=== PATIENT | female | born 1970 | race Caucasian/White ===

== ENCOUNTER 2016-12-05 13:22 | Emergency (ER) | payer OTHER ==
[~2016-12-05] VITALS: Ht 154.9 cm; Wt 81.6 kg
[2016-12-05 13:33] VITALS: BP 129/62
--- NOTE | 2016-12-05 13:52 | NUR ---
46 YO FEMALE C/O ABDOMINAL AND BACK OF NECK PAIN 8/ WITH NAUSEA SINCE 0600 TODAY, DENIES VOMITING, DIARRHEA, LBM WAS NORMAL TODAY. A&OX4, GURNEY TO LOWEST LEVEL, BED RAIL UP, FAMILY AT BEDSIDE, WAITING FOR ERMD EVAL.
[2016-12-05] MEDS ORDERED: KETOROLAC 30 MG/ML VIAL IM ONE (14:35)
[2016-12-05 14:47] LABS: BASOPHILS # (AUTO) 0.1 K/uL (0.00-0.22); BASOPHILS % (AUTO) 1.5 % (0.0-2.0); EOSINOPHILS # (AUTO) 0.1 K/uL (0-0.4); EOSINOPHILS % (AUTO) 0.9 % (0.0-4.0); HEMATOCRIT 37.3 % (36-48); HEMOGLOBIN 11.3 g/dL (12.0-16.0); LYMPHOCYTES # (AUTO) 0.5 K/uL (2.5-16.5); LYMPHOCYTES % (AUTO) 5.2 % (20.5-51.1); MEAN CORPUSCULAR HEMOGLOBIN 22 pg (27-31); MEAN CORPUSCULAR HGB CONC 30 g/dL (33-37); MEAN CORPUSCULAR VOLUME 73 fL (80-94); MONOCYTES # (AUTO) 0.6 K/uL (0.8-1.0); MONOCYTES % (AUTO) 5.6 % (1.7-9.3); NEUTROPHILS # (AUTO) 8.6 K/uL (1.8-7.7); NEUTROPHILS % (AUTO) 86.8 % (42.2-75.2); PLATELET COUNT (AUTO) 292 K/uL (140-450); RED BLOOD CELL COUNT(AUTO) 5.13 MIL/uL (4.20-5.40); RED CELL DISTRIBUTION WIDTH 16.6 % (11.6-13.7); WHITE BLOOD COUNT (AUTO) 9.9 K/uL (4.8-10.8)
[2016-12-05] MEDS ORDERED: ONDANSETRON 4 MG ODT PO ONE (14:50)
[2016-12-05 15:00] LABS: ANION GAP 9.9 (8-16); CARBON DIOXIDE 25.9 mmol/L (21-32); CREATININE 0.8 mg/dL (0.6-1.3); POTASSIUM 3.8 mmol/L (3.5-5.1)
[2016-12-05 15:06] LABS: ALBUMIN 3.6 g/dL (3.4-5.0); TOTAL BILIRUBIN 0.5 mg/dL (0.0-1.0)
[2016-12-05] MEDS ORDERED: NACL 0.9% 1,000 ML IV ONE (15:20)
[2016-12-05 16:29] LABS: APPEARANCE,URINE CLEAR (CLEAR); BILIRUBIN,URINE NEGATIVE (NEGATIVE); BLOOD, URINE NEGATIVE (NEGATIVE); COLOR,URINE YELLOW (YELLOW); LEUKOCYTE ESTERASE ,URINE NEGATIVE (NEGATIVE); NITRITE, URINE NEGATIVE (NEGATIVE); PH,URINE 7.5 (5.0-9.0); UGLUCOSE NEGATIVE (NEGATIVE)
[2016-12-05 18:08] VITALS: BP 119/55
--- NOTE | 2016-12-05 18:09 | NUR ---
Patient discharged with v/s stable. Written and verbal after care instructions given and explained. Patient verbalized understanding. Ambulatory with steady gait. All questions addressed prior to discharge. Advised to follow up with PMD.
== END 2016-12-05 18:09 | disposition home or self-care (01) ==
LOC: MED 13:22
DX: R10.9 Unspecified abdominal pain (principal); R11.0 Nausea; Z90.49 Acquired absence of other specified parts of digestive tract; Z88.5 Allergy status to narcotic agent
CPT/HCPCS: 36415; 74177; 80053; 81003; 81025; 83690; 85025; 96360; 96372; 99285; J1885; J7030; Q9967; S0119; 96361

== ENCOUNTER 2017-12-30 17:47 | Emergency (ER) | payer OTHER ==
[~2017-12-30] VITALS: Ht 154.9 cm; Wt 83.5 kg
[2017-12-30 18:00] VITALS: BP 91/52
[2017-12-30] MEDS: KETOROLAC 30 MG/ML VIAL IM ONE (20:05)
[2017-12-30 20:26] VITALS: BP 91/52
== END 2017-12-30 20:28 | disposition home or self-care (01) ==
LOC: MED 17:47
DX: S93.402A Sprain of unspecified ligament of left ankle, initial encounter (principal); Z02.89 Encounter for other administrative examinations; Z88.6 Allergy status to analgesic agent; W19.XXXA Unspecified fall, initial encounter; Y93.89 Activity, other specified; Y92.89 Other specified places as the place of occurrence of the external cause; Y99.8 Other external cause status
CPT/HCPCS: 73610; 96372; 99284; J1885

== ENCOUNTER 2019-03-21 12:21 | Emergency (ER) | payer OTHER ==
[~2019-03-21] VITALS: Ht 160 cm; Wt 83.0 kg
[2019-03-21 12:26] VITALS: BP 106/68
--- NOTE | 2019-03-21 12:30 | NUR ---
PT TO BED 4 WITH STEADY GAIT
--- NOTE | 2019-03-21 12:37 | NUR ---
49/F C/O PRODUCTIVE COUGH, SORE THROAT, POWERS, SNEEZING, RHINORRHEA, NASAL CONGESTION X 1 WK. DENIES FEVER, SOB, N/V. PAIN 9/10 HEADACHE AND THROAT PAIN. STATES MILD DIZZINESS. TOOK TYLENOL TO NO RELIEF. LUNGS CTAB. HX- DENIES
--- NOTE | 2019-03-21 12:59 | NUR ---
DR. PENA EVALUATING PT AT BEDSIDE.
[2019-03-21] MEDS ORDERED: KETOROLAC 30 MG/ML VIAL IM ONE (13:05)
[2019-03-21] MEDS ORDERED: SUMAtriptan 25 MG TAB PO ONE (13:05)
[2019-03-21] MEDS ORDERED: APAP/BUTAL/CAFF 325/50/40 MG 1 TAB PO ONE (14:00)
[2019-03-21 15:06] VITALS: BP 101/59
--- NOTE | 2019-03-21 15:06 | NUR ---
PAIN 07/16, NADR AT THIS TIME
--- NOTE | 2019-03-21 15:06 | NUR ---
Patient discharged with v/s stable. Written and verbal after care instructions given and explained. Patient alert, oriented and verbalized understanding of instructions. Ambulatory with steady gait. All questions addressed prior to discharge. ID band removed. Patient advised to follow up with PMD. Rx of NAPROXEN AND PROMETHAZINE given. Patient educated on indication of medication including possible reaction and side effects. Opportunity to ask questions provided and answered. PT GIVEN EXCUSE FOR WORK THROUGH THE
== END 2019-03-21 15:06 | disposition home or self-care (01) ==
LOC: MED 12:21
DX: R51 Headache (principal); J02.8 Acute pharyngitis due to other specified organisms; B97.89 Other viral agents as the cause of diseases classified elsewhere; Z88.5 Allergy status to narcotic agent
CPT/HCPCS: 96372; 99283; J1885